=== PATIENT | female | born 1975 | race African-American/Black ===

== ENCOUNTER 2018-12-14 23:43 | Observation (INO) ==
[2018-12-15] MEDS ORDERED: KETOROLAC 30 MG/1 ML VIAL IV STA (00:20)
[2018-12-15] MEDS ORDERED: SODIUM CHLORIDE 0.9% 500 ML IV STA (00:20)
[2018-12-15] MEDS ORDERED: ONDANSETRON 4 MG/2 ML VIAL IV STA (00:20)
[2018-12-15 01:32] LABS: Albumin 3.7 G/DL (3.4-5.0); Bilirubin,Total 0.5 MG/DL (0.2-1.0); Osmolality,Calculated 279.5 MOS/KG (273-304); Potassium 3.8 MMOL/L (3.5-5.1); Total Protein 7.5 G/DL (6.4-8.3)
[2018-12-15 01:39] LABS: Apearance,Urine Slightly Hazy (Clear); Bilirubin,Urine Negative (Negative); Blood, Urine Negative (Negative); Glucose,Urine (UA) Negative (Negative); Ketones,Urine 5 mg/dL (Negative); Mucus,Urine Occasional /LPF (Occasional); Nitrite,Urine Negative (Negative); Protein,Urine Negative; RBC,Urine 2 /HPF (0-4); Squamous Epithelial Cell,Urine Occasional /HPF (0-10); Urine Color Yellow (Yellow); Urine Specific Gravity 1.025 (1.001-1.035); Urine Urobilinogen < 2.0 EU/DL (0.2-1.0); WBC,Urine 65 /HPF (0-6)
[2018-12-15] MEDS ORDERED: cefTRIAXone 1,000 MG in SODIUM CHLORIDE 0.9% 100 ML IV STA (01:43)
[2018-12-15 01:49] LABS: Basophils % 0.3 % (0.0-0.8); Eosinophils # 0.1 10*3/uL (0.0-0.87); Eosinophils % 0.7 % (0.00-10.9); Hematocrit 35.7 VOL% (35.7-47.0); Hemoglobin 10.9 GM/DL (12.0-16.0); Immature Granulocytes % 0.7 %; Immature Granulocytes Absolute 0.05 #; Lymphocytes % 43.2 % (21.3-54.2); Mean Corpuscular HGB Conc 30.5 GM/DL (32-36); Mean Corpuscular Hemoglobin 27 PG (27-34); Mean Corpuscular Volume 89.3 FL (87-102); Mean Platelet Volume 11.2 FL (9.6-12.0); Monocytes # 0.7 10*3/uL (0.11-0.8); Monocytes % 10.8 % (1.7-12.7); Neutrophils % 44.3 % (38.7-73.9); Platelet Count 164 T/CUMM (130-400); White Blood Count 6.8 T/CUMM (4-12)
[2018-12-15 02:11] LABS: Barbiturates Screen,Urine Negative (Negative); Benzodiazepines Screen,Urine Negative (Negative); Cannabinoid Screen,Urine Negative (Negative); Opiate Screen,Urine Negative (Negative); Phencyclidine Screen,Urine Negative (Negative)
[2018-12-15] MEDS ORDERED: ACETAMINOPHEN 325 MG TABLET PO PRN (02:42)
[2018-12-15] MEDS ORDERED: ONDANSETRON 4 MG/2 ML VIAL IV PRN (02:42)
[2018-12-15] MEDS: SODIUM CHLORIDE 0.9% 1,000 ML IV SCH ×2 (04:39→20:12)
[2018-12-15 05:17] LABS: Basophils % 0.3 % (0.0-0.8); Eosinophils % 0.7 % (0.00-10.9); Hematocrit 32.4 VOL% (35.7-47.0); Hemoglobin 10.1 GM/DL (12.0-16.0); Immature Granulocytes % 0.5 %; Immature Granulocytes Absolute 0.03 #; Lymphocytes # 2.7 10*3/uL (1.4-4.0); Lymphocytes % 43.9 % (21.3-54.2); Mean Corpuscular HGB Conc 31.2 GM/DL (32-36); Mean Corpuscular Hemoglobin 28 PG (27-34); Mean Corpuscular Volume 89.3 FL (87-102); Mean Platelet Volume 11.3 FL (9.6-12.0); Monocytes # 0.7 10*3/uL (0.11-0.8); Monocytes % 11.1 % (1.7-12.7); Neutrophils # 2.6 10*3/uL (1.4-7.4); Neutrophils % 43.5 % (38.7-73.9); Platelet Count 147 T/CUMM (130-400); Red Blood Count 3.63 MC/CUMM (3.8-5.5); Red Cell Distribution Width 12.9 % (9.3-17.3); White Blood Count 6.1 T/CUMM (4-12)
[2018-12-15 05:23] LABS: Osmolality,Calculated 278.5 MOS/KG (273-304)
[2018-12-15] MEDS: predniSONE 5 MG TABLET PO SCH (08:55)
[2018-12-15] MEDS: PANTOPRAZOLE 40 MG TABLET PO SCH (08:55)
[2018-12-15] MEDS: ASPIRIN EC 81 MG TABLET PO SCH (08:55)
[2018-12-15] MEDS: METOPROLOL TARTRATE 50 MG TABLET PO SCH ×2 (08:55→20:10)
[2018-12-15] MEDS: HYDROXYCHLOROQUINE 200 MG TABLET PO SCH ×2 (08:55→20:10)
[2018-12-16] MEDS ORDERED: cefTRIAXone 1,000 MG in SYRINGE 1 EACH IV SCH (02:00)
[2018-12-16] MEDS: SODIUM CHLORIDE 0.9% 1,000 ML IV SCH (09:40)
[2018-12-16] MEDS: predniSONE 5 MG TABLET PO SCH (09:43)
[2018-12-16] MEDS: ASPIRIN EC 81 MG TABLET PO SCH (09:43)
[2018-12-16] MEDS: HYDROXYCHLOROQUINE 200 MG TABLET PO SCH (09:44)
[2018-12-16] MEDS: METOPROLOL TARTRATE 50 MG TABLET PO SCH (09:44)
[2018-12-16] MEDS: PANTOPRAZOLE 40 MG TABLET PO SCH (09:44)
[2018-12-16 11:42] VITALS: BP 120/84
== END 2018-12-16 15:10 | disposition home or self-care (01) ==
LOC: EDUNIT# → N.ED 23:43 → SUATTDRO 12-15 02:42 → N.EDINP 12-15 02:42 → SUPCPDRO 12-15 02:42 → INTOOBSV 12-15 02:42 → N.4E 12-15 03:03
PROVIDERS: ADMIT Internal Medicine; ATTEND Internal Medicine Cardiovascular Disease